=== PATIENT | female | born 1960 | race Caucasian/White ===

== ENCOUNTER → 2016-12-09 | Outpatient (CLI) | payer MEDICARE, MEDICAID ==
[~2016-12-09] MED LIST: AMBIEN5 MG PO; CALCIUM PO; DEPAKOTE DELAY250 MG PO; DOC-Q-LACE100 MG PO; KEPPRA500 M1 PO; LEVOTHROID (SY88 MCG PO; LEXAPRO20 MG PO; MIRALAX17 GM PO; MOBIC15 MG PO; NEURONTIN300 MG PO; PRILOSEC OTC20 MG PO; TYLENOL EXTRA500 MG PO; VIMPAT100 MG PO; VITAMIN D1000 UNIT PO
== END | disposition disaster alternative care site (69) ==
LOC: GAMB 16:59
DX: R50.9 Fever, unspecified (principal); G40.919 Epilepsy, unspecified, intractable, without status epilepticus; K59.00 Constipation, unspecified; E03.9 Hypothyroidism, unspecified; Z79.899 Other long term (current) drug therapy; Z88.0 Allergy status to penicillin; Z88.8 Allergy status to other drugs, medicaments and biological substances
CPT/HCPCS: A0425; A0427; J7030